=== PATIENT | male | born 1960 | race Caucasian/White ===

== ENCOUNTER 2018-10-11 18:53 | Observation (INO) ==
[2018-10-11 19:16] VITALS: BMI 34.2
--- NOTE | 2018-10-11 19:55 | DR.ABDMALE ---
HPI Time seen Time Seen by Provider: 10/11/18 19:54 PCP Primary Care Physician: alban Jansen Chief Complaint Doctors Comments: 57yo male presented for RUQ pain. Pt reports around 10am this morning having RUQ and epigastric pain That was sharp and worse with inspiration and nausea. He reports taking OTC antacids w/o relief. Denies any SOB, CP, vomiting or diarrhea. He has a regular BM today. Denies any fever or chills. His pain is now down to 4/10. Does not radiate to back or groin Chief Complaint:: pt c/o RUQ PAIN THAT IS DIFFUSE DOWN THE CENTER OF ABD Reviewed Nurses Notes Review: Yes Mode of arrival Mode of Arrival: Ambulatory Timing Onset of Chief Complaint: 10/11/18 Came on: Gradually Duration Duration: Intermittent Duration: Hours Location Location: RUQ Severity Severity: Mild Quality Quality: Sharp Context Onset: Gradually History of: negative Abdominal surgery, Urolithiasis, Bowel obstruction and Similar pain (dx) Modifying factors Worsening Factors: Food Improving Factors: Nothing Associated signs and symptoms Associated Signs and Symptoms: Nausea; denies Vomiting and Constipation PMH PMH Past Medical History: Yes Past Medical History: Diabetes and Dyslipidemia Past Surgical History: No Family History History of Family Medical Conditions: Yes Family Medical History: Diabetes Mellitus, [place] and Hypertension Social History Type of Tobacco Use: Smokeless Does any household member use tobacco: No Alcohol Use: Occasionally Do you use any recreational Drugs:: No Lives With: Family Lives Where: Home infectious screening In the last 2 months have you had wt loss of >10#?: NO Have you had fever, night sweats or hemotysis?: No Have you traveled outside the country in the last 6 months?: No Isolation: Standard ROS Review of Systems Constitutional: negative Chills, Fever, Weakness and Loss of Appetite Eyes: negative Blurred Vision ENTM: negative Nose Congestion Respiratoy: negative Short of Breath Cardiovascular: negative Chest Pain Gastrointestinal/Abdominal: Abdominal Pain and Nausea; negative Constipation, Diarrhea and Vomiting Neurological: negative Weakness Musculoskeletal: negative Muscle Pain Integumentary: negative Rash Hematologic/Lymphatic: negative Lymphadenopathy Endocrine: negative Decreased Appetite Psychiatric: negative Depression All Other Systems: Reviewed and Negative PE Vital Signs Vital Signs: Temp Pulse Resp BP BP Pulse Ox 10/11/18 20:07 18 10/11/18 19:00 97.7 F 61 18 115/75 97 10/23/14 00:40 108/72 108/72 General Limitations: No Limitations General Appearance: Alert and In No Apparent Distress Head Head Exam: Normal Inspection and Normocephalic Eyes Eye exam: Normal Appearance and EOMI ENT ENT Exam: Normal Exam, Normal Oropharynx and Mucous Membranes Moist Neck Neck Exam: Normal Inspection and Full ROM Respiratory Respiratory Exam: Normal Lung Sounds Bilat; negative Respiratory Distress Respiratory Exam: Bilateral: Clear to Auscultation Cardiovascular Cardiovascular Exam: Regular Rate, Normal Rhythm and Normal Heart Sounds Abdominal Exam Abdominal Exam: Normal Inspection, Normal Bowel Sounds, Soft and Tenderness (RUQ/epigastric); negative Organomegaly and Mass Abdominal Tenderness: RUQ and Epigastrium Back Back Exam: Normal Inspection and Full ROM; negative Tenderness and (R) CVA Tenderness Extremeties Extremities Exam: Normal Inspection, Full ROM and Normal Capillary Refill; negative Tenderness and Edema Neurologic Neurological Exam: Alert, Oriented X3 and Normal Gait; negative Motor Sensory Deficit Psychiatric Psychiatric Exam: Normal Affect and Normal Mood Skin Skin Exam: Warm, Dry, Intact and Normal Color; negative Rash MDM Additional Information Obtained From Additional information provided by: Old Records Differential Diagnosis Differential Diagnosis: Cholcystitis, Cholelethiasis, Constipation, Diverticular disease and Urolithiasis COURSE Treatment Treatment: WBC 12.6 will order US RUQ Reevaluation 1st: Improved and Unchanged (will give IVF and pain IV pain medication) Consultation Consultation Comments: 21:[address] Cordova. will see in hospital in AM 22:[address] Syed, will admit and see in hospital Education/Counseling Education/Counseling: Patient, Education and Counseling Educated On: Treatment, Diagnosis, Prognosis and Needs for Follow Up (pcp) ROR Labs Reviewed Laboratory Results Reviewed?: Yes Result Diagrams: 10/11/18 20:10 10/11/18 20:10 Laboratory: WBC 12.6 X10^3/uL (3.6-10.0) H 10/11/18 20:10 RBC 4.58 X10^6/uL (4.7-6.0) L 10/11/18 20:10 Hgb 15.5 g/dL (13.5-18.0) 10/11/18 20:10 Hct 43.9 % (42.0-54.0) 10/11/18 20:10 MCV 95.8 fL (80.0-100.0) 10/11/18 20:10 MCH 33.9 pg (27.0-34.0) 10/11/18 20:10 MCHC 35.4 g/dL (33.0-35.0) H 10/11/18 20:10 RDW 12.8 % (11.6-16.5) 10/11/18 20:10 Plt Count 258 X10^3/uL (150.0-450.0) 10/11/18 20:10 MPV 7.9 fL (7.4-11.0) 10/11/18 20:10 Neut % (Auto) 79.9 % (42.0-75.0) H 10/11/18 20:10 Lymph % (Auto) 12.3 % (21.0-51.0) L 10/11/18 20:10 [place] % (Auto) 5.7 % (0.0-13.0) 10/11/18 20:10 Eos % (Auto) 1.4 % (0.9-2.9) 10/11/18 20:10 Baso % (Auto) 0.7 % (0.2-1.0) 10/11/18 20:10 Neut # (Auto) 10.1 x10^3/uL (2.2-4.8) H 10/11/18 20:10 Lymph # (Auto) 1.6 X10^3/uL (1.3-2.9) 10/11/18 20:10 [place] # (Auto) 0.7 x10^3/uL (0.3-0.8) 10/11/18 20:10 Eos # (Auto) 0.2 x10^3/uL (0.0-0.2) 10/11/18 20:10 Baso # (Auto) 0.1 X10^3/uL (0.0-0.1) 10/11/18 20:10 Absolute Nucleated RBC 0.0 /100WBC 10/11/18 20:10 Sodium 138 mmol/L (136-145) 10/11/18 20:10 Corrected Sodium 142 mmol/L (136-145) 10/11/18 20:10 Potassium 4.3 mmol/L (3.5-5.1) 10/11/18 20:10 Chloride 101 mmol/L (98-107) 10/11/18 20:10 Carbon Dioxide 27.3 mmol/L (21-32) 10/11/18 20:10 BUN 18 mg/dL (7-18) 10/11/18 20:10 Creatinine 1.19 mg/dL (0.70-1.30) 10/11/18 20:10 Est GFR (MDRD) Af Amer > 60 (>60) 10/11/18 20:10 Est GFR (MDRD) Non-Af > 60 (>60) 10/11/18 20:10 Glucose 250 mg/dL (65-99) H 10/11/18 20:10 Calcium 9.0 mg/dL (8.5-10.1) 10/11/18 20:10 Corrected Calcium TNP 10/11/18 20:10 Total Bilirubin 0.40 mg/dL (0.2-1.0) 10/11/18 20:10 AST 14 Units/L (15-37) L 10/11/18 20:10 ALT 38 Units/L (12-78) 10/11/18 20:10 Alkaline Phosphatase 54 Units/L (46-116) 10/11/18 20:10 Total Protein 7.3 g/dL (6.4-8.2) 10/11/18 20:10 Albumin 4.1 g/dL (3.4-5.0) 10/11/18 20:10 Globulin 3.2 g/dL (2.5-4.5) 10/11/18 20:10 Albumin/Globulin Ratio 1.3 Ratio (1.1-2.1) 10/11/18 20:10 Lipase 165 Units/L (73-393) 10/11/18 20:10 Other Results Comments: WBC 12.6 with left shift, BG 250 US GB: multiple Gallstone with mild gb wall thickening, CBD nml 3.4, positive nieto sign XRAY XRAY Interpreted by: Radiologist Opioid Opioid Risk Tool Total: 0 Total Score Risk Category: Low Risk Copyright: [place] predicting aberrant behaviors Diagnosis Discharge Problem: Acute cholecystitis, Hyperglycemia due to type 2 diabetes mellitus ADDITIONAL NOTES Additional Notes Additional Notes: I have personally reviewed your medications, lab results, imaging and time was spent discussion results. Patient educated on their health issue. They verbalized their understanding and agreed with plan of care. Condition: Stable Disposition: Admit
[2018-10-11] MEDS ORDERED: ULTRAM PO ONE (20:00)
[2018-10-11] MEDS ORDERED: ULTRAM ONE (20:05)
[2018-10-11] MEDS ORDERED: ZOFRAN TAB 4 MG PO ONE (20:05)
[2018-10-11] MEDS ORDERED: ZOFRAN TAB 4 MG ONE (20:05)
[2018-10-11 20:22] LABS: BASOPHILS # (AUTO) 0.1 X10^3/uL (0.0-0.1); BASOPHILS % (AUTO) 0.7 % (0.2-1.0); EOSINOPHILS # (AUTO) 0.2 x10^3/uL (0.0-0.2); EOSINOPHILS % (AUTO) 1.4 % (0.9-2.9); HEMATOCRIT 43.9 % (42.0-54.0); HEMOGLOBIN 15.5 g/dL (13.5-18.0); LYMPHOCYTES # (AUTO) 1.6 X10^3/uL (1.3-2.9); LYMPHOCYTES % (AUTO) 12.3 % (21.0-51.0); MEAN CORPUSCULAR HEMOGLOBIN 33.9 pg (27.0-34.0); MEAN CORPUSCULAR HGB CONC 35.4 g/dL (33.0-35.0); MEAN CORPUSCULAR VOLUME 95.8 fL (80.0-100.0); MEAN PLATELET VOLUME 7.9 fL (7.4-11.0); MONOCYTES # (AUTO) 0.7 x10^3/uL (0.3-0.8); MONOCYTES % (AUTO) 5.7 % (0.0-13.0); NEUTROPHILS # (AUTO) 10.1 x10^3/uL (2.2-4.8); NEUTROPHILS % (AUTO) 79.9 % (42.0-75.0); PLATELET COUNT 258 X10^3/uL (150.0-450.0); RED BLOOD COUNT 4.58 X10^6/uL (4.7-6.0); RED CELL DISTRIBUTION WIDTH 12.8 % (11.6-16.5); WHITE BLOOD COUNT 12.6 X10^3/uL (3.6-10.0)
[2018-10-11 20:31] LABS: ALANINE AMINOTRANSFERASE 38 Units/L (12-78); ALBUMIN 4.1 g/dL (3.4-5.0); ALKALINE PHOSPHATASE 54 Units/L (46-116); ASPARTATE AMINO TRANSFERASE 14 Units/L (15-37); BLOOD UREA NITROGEN 18 mg/dL (7-18); CARBON DIOXIDE 27.3 mmol/L (21-32); CHLORIDE 101 mmol/L (98-107); COR NA(FOR HYPERGLY) 142 mmol/L (136-145); CREATININE 1.19 mg/dL (0.70-1.30); LIPASE 165 Units/L (73-393); SODIUM 138 mmol/L (136-145); TOTAL PROTEIN 7.3 g/dL (6.4-8.2); eGFR NON BLACK RACES > 60 (>60)
--- NOTE | 2018-10-11 21:30 | US ---
HISTORY: Right upper quadrant pain Study: Right upper quadrant abdominal ultrasound Comparison: None Technique: Multiple images of the right upper quadrant were obtained. Findings: The liver measures 20.0 x 12.0 x 12.0 cm. Diffuse increased echogenicity throughout the liver suggests fatty infiltration. Correlate clinically as other causes of hepatic disease may produce a similar appearance. The right kidney measures 11.0 x 5.6 x 5.5 cm. No sonographic evidence of hydronephrosis is identified. Multiple shadowing echogenic stones are noted within the gallbladder. The gallbladder wall is mildly thickened measuring approximately 3.8 mm. duct is within normal limits in caliber measuring 3.4 mm. The program coordinator executive education noted a positive Parks sign. IMPRESSION: Hepatomegaly. Hepatic steatosis. Multiple stones within the gallbladder with mild gallbladder wall thickening as noted above. Correlate clinically. Reported By:
[2018-10-11] MEDS ORDERED: ZOSYN VIAL 3.375 GRAMS IV ONE (21:47)
[2018-10-11] MEDS ORDERED: NS 100 ML IV + SPIKE MINIBAG* 100 ML ONE (21:48)
[2018-10-11] MEDS: ZOSYN VIAL 3.375 GRAMS 3.375 G in NS 100 ML IV + SPIKE MINIBAG* 100 ML IV SCH (21:59)
[2018-10-11] MEDS: NS 1000 ML 1,000 ML IV SCH (21:59)
[2018-10-11] MEDS ORDERED: HumaLOG SC PRN (23:00)
[2018-10-11] MEDS ORDERED: OTBS NS XX SCH (23:00)
[2018-10-12] MEDS: DEMEROL INJ IVP PRN ×2 (03:49→18:30)
[2018-10-12] MEDS ORDERED: NS 100 ML IV + SPIKE MINIBAG* 100 ML ONE (05:19)
[2018-10-12] MEDS ORDERED: ZOSYN VIAL 3.375 GRAMS IV ONE (05:19)
[2018-10-12] MEDS: ZOSYN VIAL 3.375 GRAMS 3.375 G in NS 100 ML IV + SPIKE MINIBAG* 100 ML IV SCH ×3 (05:32→21:01)
[2018-10-12 05:44] LABS: BASOPHILS # (AUTO) 0.1 X10^3/uL (0.0-0.1); BASOPHILS % (AUTO) 0.8 % (0.2-1.0); EOSINOPHILS # (AUTO) 0.2 x10^3/uL (0.0-0.2); EOSINOPHILS % (AUTO) 1.4 % (0.9-2.9); HEMATOCRIT 42.1 % (42.0-54.0); HEMOGLOBIN 14.6 g/dL (13.5-18.0); LYMPHOCYTES # (AUTO) 3.1 X10^3/uL (1.3-2.9); LYMPHOCYTES % (AUTO) 21.9 % (21.0-51.0); MEAN CORPUSCULAR HEMOGLOBIN 33.7 pg (27.0-34.0); MEAN CORPUSCULAR HGB CONC 34.6 g/dL (33.0-35.0); MEAN CORPUSCULAR VOLUME 97.6 fL (80.0-100.0); MEAN PLATELET VOLUME 8.1 fL (7.4-11.0); MONOCYTES # (AUTO) 1.1 x10^3/uL (0.3-0.8); MONOCYTES % (AUTO) 7.5 % (0.0-13.0); NEUTROPHILS # (AUTO) 9.6 x10^3/uL (2.2-4.8); NEUTROPHILS % (AUTO) 68.4 % (42.0-75.0); PLATELET COUNT 242 X10^3/uL (150.0-450.0); RED BLOOD COUNT 4.32 X10^6/uL (4.7-6.0); RED CELL DISTRIBUTION WIDTH 12.8 % (11.6-16.5)
[2018-10-12 05:53] LABS: ALANINE AMINOTRANSFERASE 33 Units/L (12-78); ALBUMIN 3.6 g/dL (3.4-5.0); ALKALINE PHOSPHATASE 48 Units/L (46-116); ASPARTATE AMINO TRANSFERASE 13 Units/L (15-37); BLOOD UREA NITROGEN 16 mg/dL (7-18); CALCIUM 8.2 mg/dL (8.5-10.1); CARBON DIOXIDE 24.8 mmol/L (21-32); CHLORIDE 103 mmol/L (98-107); COR NA(FOR HYPERGLY) 140 mmol/L (136-145); CREATININE 1.04 mg/dL (0.70-1.30); SODIUM 137 mmol/L (136-145); TOTAL PROTEIN 6.6 g/dL (6.4-8.2); eGFR NON BLACK RACES > 60 (>60)
[2018-10-12] MEDS ORDERED: DILAUDID INJ IVP ONE (07:41)
[2018-10-12] MEDS ORDERED: DILAUDID INJ ONE (07:44)
[2018-10-12] MEDS ORDERED: NS 1000 ML 1,000 ML ONE (09:34)
[2018-10-12] MEDS ORDERED: NEOSPORIN OINT ONE (09:37)
[2018-10-12] MEDS ORDERED: FENTANYL INJ 250 mcg ONE (09:52)
--- NOTE | 2018-10-12 10:31 | DR.H&P ---
H&P - History & Physical for Day of: H&P Date: 10/11/18 - Chief Complaint Chief Complaint: RUQ PAIN, NAUSEA - History of Present Illness History of Present Illness: IS A 57 YEAR OLD PATIENT OF OURS. HE PRESENTED TO THE ER WITH COMPLAINTS OF RUQ PAIN. HE REPORTS THAT SYMPTOMS STARTED AT APPROXIMATELY 10a.m. AND HAVE PROGRESSIVLEY GOTTEN WORSE. HE REPORTS THAT PAIN IS WORSE WITH INSPIRATION AND IS ACCOMPANIED BY NAUSEA. HE DENIES SOB, CP, VOMITING, OR DIARRHEA. ON ARRIVAL, VITALS WERE 97.7-61-18-97%-115/75. LABS WERE OBTAINED. ABNORMAL LAB VALUES INCLUDE THE FOLLOWING: WBC 12.6, RBC 4.58, GLUCOSE 250, AST 14. A GALLBLADDER US WAS OBTAINED AND REVEALED: Hepatomegaly. Hepatic steatosis. Multiple stones within the gallbladder with mild gallbladder wall thickening. Correlate clinically. HE WAS GIVEN ULTRAM 50MG PO X 1 AND ZOFRA N 4MG PO X 1 DOSE. HE WAS ADMITTED FOR FURTHER EVALUATION AND TREATMENT OF ACUTE CHOLECYSTITIS AND CHOLELITHIASIS AND HYPERGLYCEMIA. WE CONSULTED , GENERAL SURGEON. WE WILL START NORMAL SALINE AT 80ML/HR, ZOSYN 3.375G IV TID, HUMULIN R SLIDING SCALE, AND DEMEROL 50MG IV Q6H PRN. OTHERWISE, WE WILL FOLLOW UP WITH AM LABS AND CONTINUE TO MONITOR. - Past Medical History Past Medical History: Dyslipidemia, Diabetes - Past Surgical History Surgical History: No History - Family History Family Medical History: Diabetes Mellitus, Cancer, [place], Coronary Artery Disease, Heart Failure - Social History Does patient currently use any type of tobacco product: Yes (TOBACCO) Have you used tobacco products in the last 12 months: Yes Type of Tobacco Use: Smokeless How many years tobacco product used: 30 Does any household member use tobacco: Yes ( SMOKES BUT NOT INSID) Alcohol Use: Rarely Drug Use: Prescription Drugs - Medications Home Medications: No Known Drug Allergies Allergy (Verified 10/11/18 19:12) CONTINUE taking the following medications aspirin [Aspir-81] 81 mg PO 5XW 10/12/18 [History] glipizide 2.5 mg PO QAM 10/12/18 [History] insulin glargine [Lantus Solostar U-100 Insulin] 10 units SUBCUT .EVENING 10/12/18 [History] metformin 500 mg PO BID 10/12/18 [History] omeprazole-sodium bicarbonate [Zegerid OTC] 1 cap PO DAILY PRN 10/12/18 [History] - Review of Systems Constitutional: No Symptoms Reported Eyes: No Symptoms Reported ENT: No Symptoms Reported Respiratory: No Symptoms Reported Cardiovascular: No Symptoms Reported Gastrointestinal: See HPI, Nausea, Abdominal Pain Genitourinary: No Symptoms Reported Musculoskeletal: No Symptoms Reported Skin: No Symptoms Reported Neurological: No Symptoms Reported - Physical Exam Vital Signs: Temperature 99.2 F Pulse Rate [Left Brachial] 61 Pulse Rate 57 Respiratory Rate 18 Blood Pressure [Right Arm] 145/79 Blood Pressure 115/75 O2 Sat by Pulse Oximetry 100 Oriented: Normal Eyes: Normal Ear: Normal Nose: Normal Throat: Normal Respiratory: Diminished Throughout Cardiovascular: Normal : Normal Auscultation: Bowel Sounds: Normal Palpation: Normal Tenderness: RUQ, Moderate. negative: Rebound, Guarding, Rigidity Skin: Normal Musculoskeletal: Normal Psychiatric: Normal Mood Description: Calm Affect: Normal Speech Pattern: Clear - Assessment/Plan (1) Cholelithiasis Qualifiers: Cholelithiasis location: gallbladder Cholecystitis presence: with cholecystitis Cholecystitis acuity: acute Biliary obstruction: without biliary obstruction Qualified Code(s): K80.00 - Calculus of gallbladder with acute cholecystitis without obstruction Status: Acute Plan: SURGICAL CONSULT, CONTINUE TO MONITOR (2) Acute cholecystitis Status: Acute (3) Hyperglycemia due to type 2 diabetes mellitus Qualifiers: Diabetes mellitus terminal manager insulin use: without terminal manager use Qualified Code(s): E11.65 - Type 2 diabetes mellitus with hyperglycemia Status: Acute Plan: HUMULIN R SLIDING SCALE, MONITOR OTBS - Allergies Allergies/Adverse Reactions: Allergies Allergy/AdvReac Type Severity Reaction Status Date / Time No Known Drug Allergies Allergy Verified 10/11/18 19:12
[2018-10-12] MEDS ORDERED: ZOFRAN INJ 4 MG VIAL IVP PRN (11:19)
[2018-10-12] MEDS ORDERED: REGLAN INJ 10 MG VIAL IVP PRN (11:19)
[2018-10-12] MEDS ORDERED: BENADRYL INJ 50 MG VIAL IVP PRN (11:19)
[2018-10-12] MEDS ORDERED: DILAUDID INJ IVP PRN (11:19)
[2018-10-12] MEDS ORDERED: PHENERGAN INJ 25 MG IM PRN (11:19)
[2018-10-12] MEDS: HumuLIN R SUBCUT PRN (12:43)
[2018-10-12] MEDS ORDERED: NS IRRIGATION 3000 ML ONE (15:21)
[2018-10-12] MEDS ORDERED: NEOSTIGMINE INJ ONE (15:24)
[2018-10-12] MEDS ORDERED: DIPRIVAN VIAL ONE (15:24)
[2018-10-12] MEDS ORDERED: SUPRANE ONE (15:24)
[2018-10-12] MEDS ORDERED: VERSED ONE (15:24)
[2018-10-12] MEDS ORDERED: QUELICIN (OR ANECTINE) ONE (15:24)
[2018-10-12] MEDS ORDERED: ROBINUL ONE (15:24)
[2018-10-12] MEDS ORDERED: NORCURON INJ 10 MG VIAL ONE (15:24)
[2018-10-12] MEDS ORDERED: TORADOL 30 MG VIAL ONE (15:24)
[2018-10-12] MEDS ORDERED: ZOFRAN INJ 4 MG VIAL ONE (15:24)
[2018-10-12] MEDS: NS 1000 ML 1,000 ML IV SCH ×2 (18:37→20:47)
[2018-10-12] MEDS ORDERED: SNACK - Diabetic Appropriate PO SCH (20:00)
[2018-10-13] MEDS: ZOSYN VIAL 3.375 GRAMS 3.375 G in NS 100 ML IV + SPIKE MINIBAG* 100 ML IV SCH (05:45)
[2018-10-13 06:10] LABS: BASOPHILS # (AUTO) 0.1 X10^3/uL (0.0-0.1); BASOPHILS % (AUTO) 0.7 % (0.2-1.0); EOSINOPHILS # (AUTO) 0.2 x10^3/uL (0.0-0.2); EOSINOPHILS % (AUTO) 2.6 % (0.9-2.9); HEMATOCRIT 39.4 % (42.0-54.0); HEMOGLOBIN 13.9 g/dL (13.5-18.0); LYMPHOCYTES # (AUTO) 2.2 X10^3/uL (1.3-2.9); LYMPHOCYTES % (AUTO) 23.7 % (21.0-51.0); MEAN CORPUSCULAR HEMOGLOBIN 34.1 pg (27.0-34.0); MEAN CORPUSCULAR HGB CONC 35.2 g/dL (33.0-35.0); MEAN CORPUSCULAR VOLUME 96.7 fL (80.0-100.0); MEAN PLATELET VOLUME 7.9 fL (7.4-11.0); MONOCYTES # (AUTO) 0.9 x10^3/uL (0.3-0.8); MONOCYTES % (AUTO) 9.8 % (0.0-13.0); NEUTROPHILS % (AUTO) 63.2 % (42.0-75.0); PLATELET COUNT 199 X10^3/uL (150.0-450.0); RED BLOOD COUNT 4.07 X10^6/uL (4.7-6.0); RED CELL DISTRIBUTION WIDTH 12.8 % (11.6-16.5); WHITE BLOOD COUNT 9.5 X10^3/uL (3.6-10.0)
[2018-10-13] MEDS: HumuLIN R SUBCUT PRN (06:17)
[2018-10-13 06:19] LABS: ALANINE AMINOTRANSFERASE 48 Units/L (12-78); ALBUMIN 3.2 g/dL (3.4-5.0); ALKALINE PHOSPHATASE 46 Units/L (46-116); ASPARTATE AMINO TRANSFERASE 35 Units/L (15-37); BLOOD UREA NITROGEN 14 mg/dL (7-18); CALCIUM 8.2 mg/dL (8.5-10.1); CHLORIDE 104 mmol/L (98-107); COR CA(FOR HYPOALB) 8.8 mg/dL (8.5-10.1); COR NA(FOR HYPERGLY) 141 mmol/L (136-145); CREATININE 1.14 mg/dL (0.70-1.30); SODIUM 139 mmol/L (136-145); TOTAL PROTEIN 6.1 g/dL (6.4-8.2); eGFR NON BLACK RACES > 60 (>60)
--- NOTE | 2018-10-13 08:47 | PCM.PROG ---
Progress Note - Progress Note for Day of Date of Exam: 10/12/18 - Subjective Subjective: WAS ADMITTED LAST NIGHT FOR ACUTE CHOLECYSTITIS WITH CHOLELITHIASIS. TODAY, HE IS ALERT AND ORIENTED, LYING IN BED ON MORNING ROUNDS. HE CONTINUES WITH COMPLAINTS OF RUQ PAIN AND NAUSEA. ON EXAMINATION, HEART IS REGULAR IN RATE AND RHYTHM. BILATERAL LUNGS ARE NOTED WITH DIMINISHED LUNG SOUNDS THROUGHOUT. ABDOMEN IS NOTED WITH RUQ TENDERNESS. NORMAL BOWEL SOUNDS ARE NOTED IN ALL QUADRANTS. HIS VITALS THIS MORNING ARE: 99.0-61-18-91%RA-145/79. LABS WERE OBTAINED. ABNORMAL LAB VALUES INCLUDE THE FOLLOWING: WBC 14.0, RBC 4.32, GLUCOSE 227, CALCIUM 8.2, AST 13. EKG OBTAINED FOR SURGICAL CLEARANCE AND REVEALED: SINUS RHYTHM WITH HR 60. CONSULTED WITH PATIENT AND PLANS F OR A LAPROSCOPIC CHOLECYTECTOMY TODAY. WE ARE IN AGREEMENT WITH PLAN. OTHERWISE, WE WILL CONTINUE WITH IV FLUIDS, IV ANTIBIOTICS, AND CURRENT PLAN OF CARE. WE WILL FOLLOW UP WITH AM LABS AND CONTINUE TO MONITOR. - Past Medical Family Social History Past Med/Fam/Surg Hx: No changes since H&P Allergies: Allergies No Known Drug Allergies Allergy (Verified 10/11/18 19:12) - Review of Systems ROS: No change since H&P - Vital Signs and I&O's Vital Signs: Temperature 98.7 F Pulse Rate [Left Brachial] 81 Pulse Rate 55 Respiratory Rate 20 Blood Pressure [Left Arm] 109/55 Blood Pressure [Right Arm] 88/50 Blood Pressure 117/74 O2 Sat by Pulse Oximetry 95 Intake and Output: Intake & Output 10/10/18 10/11/18 10/12/18 10/13/18 11:59 11:59 11:59 11:59 Intake Total 1500 / 1500 3357 / 3357 Output Total 950 / 950 15 / 15 Balance 550 / 550 3342 / 3342 - Physical Exam Oriented: Normal Eyes: Normal Ear: Normal Nose: Normal Throat: Normal Respiratory: Generalized, Diminished Cardiovascular: Normal : Normal Auscultation: Bowel Sounds: Normal Palpation: Normal Tenderness: RUQ, Moderate. negative: Rebound, Guarding, Rigidity Skin: Normal Musculoskeletal: Normal Psychiatric: Normal Mood Description: Calm Affect: Normal Speech Pattern: Clear, Appropriate - Laboratory and Diagnostics Result Diagrams: 10/13/18 05:35 10/13/18 05:35 Labs: Laboratory WBC 9.5 X10^3/uL (3.6-10.0) 10/13/18 05:35 RBC 4.07 X10^6/uL (4.7-6.0) L 10/13/18 05:35 Hgb 13.9 g/dL (13.5-18.0) 10/13/18 05:35 Hct 39.4 % (42.0-54.0) L 10/13/18 05:35 MCV 96.7 fL (80.0-100.0) 10/13/18 05:35 MCH 34.1 pg (27.0-34.0) H 10/13/18 05:35 MCHC 35.2 g/dL (33.0-35.0) H 10/13/18 05:35 RDW 12.8 % (11.6-16.5) 10/13/18 05:35 Plt Count 199 X10^3/uL (150.0-450.0) 10/13/18 05:35 MPV 7.9 fL (7.4-11.0) 10/13/18 05:35 Neut % (Auto) 63.2 % (42.0-75.0) 10/13/18 05:35 Lymph % (Auto) 23.7 % (21.0-51.0) 10/13/18 05:35 [place] % (Auto) 9.8 % (0.0-13.0) 10/13/18 05:35 Eos % (Auto) 2.6 % (0.9-2.9) 10/13/18 05:35 Baso % (Auto) 0.7 % (0.2-1.0) 10/13/18 05:35 Neut # (Auto) 6.0 x10^3/uL (2.2-4.8) H 10/13/18 05:35 Lymph # (Auto) 2.2 X10^3/uL (1.3-2.9) 10/13/18 05:35 [place] # (Auto) 0.9 x10^3/uL (0.3-0.8) H 10/13/18 05:35 Eos # (Auto) 0.2 x10^3/uL (0.0-0.2) 10/13/18 05:35 Baso # (Auto) 0.1 X10^3/uL (0.0-0.1) 10/13/18 05:35 Absolute Nucleated RBC 0.0 /100WBC 10/13/18 05:35 Sodium 139 mmol/L (136-145) 10/13/18 05:35 Corrected Sodium 141 mmol/L (136-145) 10/13/18 05:35 Potassium 3.7 mmol/L (3.5-5.1) 10/13/18 05:35 Chloride 104 mmol/L (98-107) 10/13/18 05:35 Carbon Dioxide 26.0 mmol/L (21-32) 10/13/18 05:35 BUN 14 mg/dL (7-18) 10/13/18 05:35 Creatinine 1.14 mg/dL (0.70-1.30) 10/13/18 05:35 Est GFR (MDRD) Af Amer > 60 (>60) 10/13/18 05:35 Est GFR (MDRD) Non-Af > 60 (>60) 10/13/18 05:35 Glucose 185 mg/dL (65-99) H 10/13/18 05:35 POC Glucose (mg/dL) 190 mg/dL (65-99) H 10/13/18 05:38 Calcium 8.2 mg/dL (8.5-10.1) L 10/13/18 05:35 Corrected Calcium 8.8 mg/dL (8.5-10.1) 10/13/18 05:35 Total Bilirubin 0.70 mg/dL (0.2-1.0) 10/13/18 05:35 AST 35 Units/L (15-37) 10/13/18 05:35 ALT 48 Units/L (12-78) 10/13/18 05:35 Alkaline Phosphatase 46 Units/L (46-116) 10/13/18 05:35 Total Protein 6.1 g/dL (6.4-8.2) L 10/13/18 05:35 Albumin 3.2 g/dL (3.4-5.0) L 10/13/18 05:35 Globulin 2.9 g/dL (2.5-4.5) 10/13/18 05:35 Albumin/Globulin Ratio 1.1 Ratio (1.1-2.1) 10/13/18 05:35 Lipase 165 Units/L (73-393) 10/11/18 20:10 Tissue Pathology To follow 10/12/18 10:59 - Plan (1) Cholelithiasis Status: Acute Qualifiers: Cholelithiasis location: gallbladder Cholecystitis presence: with cholecystitis Cholecystitis acuity: acute Biliary obstruction: without biliary obstruction Qualified Code(s): K80.00 - Calculus of gallbladder with acute cholecystitis without obstruction Plan: CHOLECYSTECTOMY TODAY, CONTINUE TO MONITOR (2) Acute cholecystitis Status: Acute Plan: CHOLECYSTECTOMY TODAY, CONTINUE TO MONITOR (3) Hyperglycemia due to type 2 diabetes mellitus Status: Acute Qualifiers: Diabetes mellitus prison insulin use: without intermediate designer use Qualified Code(s): E11.65 - Type 2 diabetes mellitus with hyperglycemia Plan: HUMULIN R SLIDING SCALE, MONITOR OTBS
[2018-10-13 12:37] VITALS: BP 120/72
== END 2018-10-13 12:45 | disposition home or self-care (01) ==
LOC: OBS 18:55 → ER 18:55 → OBS 23:00
PROVIDERS: ADMIT Internal Medicine; ATTEND Internal Medicine
DX: E11.65 Type 2 diabetes mellitus with hyperglycemia; R10.13 Epigastric pain; K80.10 Calculus of gallbladder with chronic cholecystitis without obstruction; K82.1 Hydrops of gallbladder
CPT/HCPCS: 36415; 76705; 80053; 83690; 85025; 93005; 96365; 96367; 96372; 96374; 99284; A4216; A4222; G0378; J0330; J1170; J1815; J1885; J2175; J2250; J2405; J2543; J2704; J2710; J3010; J3490; J7030; J7050; S0119; S0181